=== PATIENT | female | born 1975 | race Hispanic/Latino ===

== ENCOUNTER 2017-05-17 09:13 | Inpatient (IN) | payer OTHER ==
[2017-05-17 09:27] VITALS: BMI 20.7
[2017-05-17 09:39] LABS: HEMATOCRIT 40.5 % (34.0-47.0); MEAN CELL VOLUME 95.1 fl (81.0-99.0); MEAN CORPUSCULAR HEMOGLOBIN 31.5 pg (27.0-31.0); MEAN CORPUSCULAR HGB CONC 33.1 g/dL (33.0-37.0); RED CELL DISTRIBUTION WIDTH 13.1 % (11.5-14.5); WHITE BLOOD COUNT 7.6 K/uL (4.8-10.8)
[2017-05-17] MEDS ORDERED: ceFAZolin IV 1 gm in Dextrose 1 GM/50 ML BAG IVPB ONE (10:06)
[2017-05-17] MEDS ORDERED: ePHEDrine 50 mg/ml Inj ONE (10:47)
[2017-05-17] MEDS ORDERED: Rocuronium 10 mg/ml (5 ml) ONE ×2 (10:47→14:16)
[2017-05-17] MEDS ORDERED: Propofol 10 mg/ml Inj (20 ML) ONE ×2 (10:47→16:30)
[2017-05-17] MEDS ORDERED: Succinylcholine 200 mg/10 ml Inj IV ONE (10:48)
[2017-05-17] MEDS ORDERED: Lidocaine 4% (Laryng-O-Jet) Kit MM ONE (10:48)
[2017-05-17] MEDS ORDERED: Midazolam 2 MG/2 ML VIAL ONE (12:04)
[2017-05-17] MEDS ORDERED: Lactated Ringer's 1,000 ML IV ONE ×3 (12:25→14:50)
[2017-05-17] MEDS ORDERED: Dexamethasone 4 mg/1 ml ONE (12:51)
[2017-05-17] MEDS ORDERED: Desflurane Inhalation Anesthetic Liq (240 ml) ONE ×2 (12:51→15:01)
[2017-05-17] MEDS ORDERED: DiphenhydrAMINE 50 mg/ml Inj ONE (12:51)
[2017-05-17] MEDS: Bupivacaine 0.5% Inj(30mL) ONE ×2 (12:55→13:00)
[2017-05-17] MEDS ORDERED: Sodium Chloride 0.9% 1,000 ML IV ONE ×2 (15:00→17:15)
[2017-05-17] MEDS ORDERED: Neostigmine Methylsulfate 3mg/3ml Syringe IV ONE (16:30)
[2017-05-17] MEDS ORDERED: HYDROmorphone 0.5 mg/0.5 ml ISec ONE (17:22)
[2017-05-17] MEDS: HYDROmorphone 0.5 mg/0.5 ml ISec IVP PRN ×6 (17:22→18:11)
--- NOTE | 2017-05-17 17:57 | RAD ---
HISTORY: POST-OP COMPARISON: No prior. FINDINGS: LUNGS: No active pulmonary disease. PLEURA: Chest tube identified in the right pleural space. No pneumothorax identified. CARDIOVASCULAR: No radiographic findings to suggest acute or significant cardiovascular disease. OSSEOUS STRUCTURES: No significant abnormalities. VISUALIZED UPPER ABDOMEN: Normal. OTHER FINDINGS: Endotracheal tube in satisfactory position, the tip 4.3 cm above the renita IMPRESSION: No active pulmonary disease. Additional information provided above.
[2017-05-17] MEDS ORDERED: HYDROmorphone 1 mg/ml ISec IVP SCH (19:00)
[2017-05-17] MEDS: Lactated Ringer's 1,000 ML IV SCH (19:30)
[2017-05-18] MEDS: ceFAZolin 1 GM in Sodium Chloride 0.9% 100 ML IVPB SCH ×3 (00:29→16:06)
[2017-05-18] MEDS: Lactated Ringer's 1,000 ML IV SCH ×3 (03:58→17:55)
--- NOTE | 2017-05-18 04:16 | CON ---
CRITICAL CARE CONSULTATION DATE: 05/17/2017 LOCATION: The patient is in ICU, bed 422. HISTORY OF PRESENT ILLNESS: The patient is seen and examined at the bedside. Events since admission reviewed. Events in the OR reviewed with anesthesiologist. A 42-year-old female, a nonsmoker with history significant for stage IV endometriosis with pelvic and diaphragm implant. The patient underwent cystoscopy, bilateral ureterolysis, excision of rectal mass, sigmoid mass, complex diaphragmatic mass, complex repair with mesh, and hysteroscopy under general anesthesia through endotracheal tube. *------*. Estimated blood loss about 100 mL. Extubated in the recovery room, on oxygen supplement, Venti mask on 40%. PAST MEDICAL HISTORY: Otherwise negative, no history of diabetes, hypertension, coronary artery disease, CHF. PREVIOUS SURGICAL HISTORY: Negative. MEDICATIONS AT HOME: Include control pill one tablet p.o. daily, naproxen 220 mg p.o. three times a day p.r.n. ALLERGIES: NONE DOCUMENTED. FAMILY HISTORY: Noncontributory. SOCIAL HISTORY: Negative. PHYSICAL EXAMINATION: GENERAL: Middle-aged female, drowsy but arousable, still under the effect of general anesthesia. Saturating over 94%. VITAL SIGNS: Temperature 98.6, heart rate 78, blood pressure 148/76, intake 3100 mL, output about 400, positive balance 2700, weight 125 pounds. HEAD, EYES, EARS, NOSE, AND THROAT: Pupils are reactive. Conjunctivae pink. Sclerae white. NECK: Supple. Trachea is central. CHEST: Bilateral breath sounds. Diminished on the right. Chest tube in place draining, no air leak noted, minimal drainage. ABDOMEN: Bowel sounds present, mildly distended. Dressing intact. No swelling. EXTREMITIES: Without clubbing or cyanosis. No palpable cord. NEUROLOGIC: Drowsy, but arousable. CURRENT MEDICATIONS: Include Tylenol 650 q. 6 p.r.n., Dilaudid 0.5 mg IV q. 5 minutes p.r.n., hydromorphone [employer], Demerol 12.5 mg IV q. 5 minutes p.r.n. for shivering/rigor, Zofran 4 mg IV q. 6, Ancef 1 gram IV q. 8 hours times two more doses, IV fluid. LABORATORY DATA: CBC and BMP are pending. IMPRESSION: A 42-year-old female status post resection of endometrial implant with bilateral ureterolysis, excision of rectal mass, sigmoid mass, complex diaphragmatic mass with chest tube insertion. Operative course was uneventful, extubated, hemodynamically stable. Continue analgesics as needed for pain, IV hydration, monitor hemodynamic stability. Continue DVT prophylaxis. Bubba Kebede MD MTDD
[2017-05-18 05:20] LABS: BASO % 0.2 % (0.0-2.0); HEMATOCRIT 33.9 % (34.0-47.0); LYMPH # 1.2 K/uL (1.0-4.3); LYMPH % 9.5 % (20.0-40.0); MEAN CELL VOLUME 95.4 fl (81.0-99.0); MEAN CORPUSCULAR HEMOGLOBIN 31.8 pg (27.0-31.0); MEAN CORPUSCULAR HGB CONC 33.4 g/dL (33.0-37.0); MEAN PLATELET VOLUME 10.5 fl (7.2-11.7); MONO % 7.5 % (0.0-10.0); NEUT # 10.6 K/uL (1.8-7.0); NEUT % 82.8 % (50.0-75.0); PLATELET COUNT 127 K/uL (130-400); RED CELL DISTRIBUTION WIDTH 13.2 % (11.5-14.5); WHITE BLOOD COUNT 12.7 K/uL (4.8-10.8)
[2017-05-18 05:46] LABS: BLOOD UREA NITROGEN 12 mg/dl (7-17); GFR AFRICAN-AMERICAN > 60; GLUCOSE,RANDOM 93 mg/dL (65-105)
[2017-05-18 05:47] LABS: ALB/GLOB RATIO 1.3 (1.0-2.1); ALKALINE PHOSPHATASE 37 U/L (38-126); ALT/SGPT 55 U/L (9-52); AST/SGOT 62 U/L (14-36); BILIRUBIN,TOTAL 0.5 mg/dl (0.2-1.3); CALCIUM 8.4 mg/dL (8.4-10.2); CARBON DIOXIDE 25 mmol/L (22-30); CHLORIDE 106 mmol/L (98-107); POTASSIUM 4.3 MMOL/L (3.6-5.0); SODIUM 138 mmol/l (132-148); TOTAL PROTEIN 5.6 G/DL (6.3-8.2)
[2017-05-18 06:30] LABS: EOSINOPHIL 1 % (0-7); NEUTROPHIL 78 % (42-75); TOTAL CELLS COUNTED 100
--- NOTE | 2017-05-18 07:40 | CP.PCM.PN ---
Subjective - Date & Time of Evaluation Date of Evaluation: 05/18/17 Time of Evaluation: 07:00 - Subjective Subjective: Patient seen and examined this AM. Reports moderate pain along chest tube site insertion. CT output: 180cc/12hr, serosanguinous. Urine output: 450cc/24hr. No acute events over night. Objective - Vital Signs/Intake and Output Vital Signs (last 24 hours): Temp Pulse Resp BP Pulse Ox 98.4 F 52 L 12 115/66 93 L 05/18/17 04:00 05/18/17 06:00 05/18/17 06:00 05/18/17 06:00 05/18/17 06:00 Intake and Output: 05/18/17 05/18/17 06:59 18:59 Intake Total 1609 Output Total 790 Balance 819 - Medications Medications: Current Medications Acetaminophen (Tylenol 325mg Tab) 650 mg PO Q6 PRN PRN Reason: Fever >100.4 F Lactated Ringer's (Lactated Ringer's) 1,000 mls @ 125 mls/hr IV .Q8H [facility] Last Admin: 05/18/17 03:58 Dose: 125 mls/hr Cefazolin Sodium 1 gm/ Sodium (Chloride) 100 mls @ 100 mls/hr IVPB Q8 [facility]SEMARY PRN Reason: Protocol Last Admin: 05/18/17 00:29 Dose: 100 mls/hr Influenza Virus Vaccine (Afluria (Pf)(18yr & Older)) 0.5 ml IM .ONCE ONE Stop: 05/19/17 09:01 Ketorolac Tromethamine (Toradol) 30 mg IVP Q6 ROSEMARY Last Admin: 05/18/17 03:48 Dose: 30 mg Meperidine HCl (Demerol) 12.5 mg IVP Q5M PRN PRN Reason: Shivering/Rigor Morphine Sulfate (Morphine Night Time Nanny 1 Mg/Ml) 0 mg IV PRN PRN; Protocol PRN Reason: Pain, moderate (4-7) Last Admin: 05/18/17 03:31 Dose: 30 mg Ondansetron HCl (Zofran Inj) 4 mg IVP Q6 ROSEMARY Last Admin: 05/18/17 03:48 Dose: 4 mg - Labs Labs: 05/18/17 04:25 05/18/17 04:25 - Constitutional Appears: No Acute Distress - Head Exam Head Exam: NORMOCEPHALIC - Eye Exam Eye Exam: Normal appearance Pupil Exam: NORMAL ACCOMODATION - ENT Exam ENT Exam: Mucous Membranes Moist - Respiratory Exam Respiratory Exam: NORMAL BREATHING PATTERN - Cardiovascular Exam Cardiovascular Exam: +S1, +S2. absent: Tachycardia - GI/Abdominal Exam GI & Abdominal Exam: Soft, Tenderness. absent: Firm - Neurological Exam Neurological Exam: Alert, Awake, Oriented x3 - Psychiatric Exam Psychiatric exam: Normal Mood - Skin Skin Exam: Dry, Intact, Warm Assessment and Plan - Assessment and Plan (Free Text) Assessment: 42F s/p excision of endometriomas, rectosigomoid mass, diaphragmatic mass w/ complex repair w/ mesh, cystoscopy, and b/l urethral lysis -Advance diet as tolerated -Chest tube to water seal -D/C Arora -Repeat CXR in four hours -Encourage patient OOB to chair -Encourage incentive spirometer use -Monitor chest tube output -D/w Dr. Nishant Noriega PGY-2
--- NOTE | 2017-05-18 09:07 | PCM.OP ---
Operative Report - Operative Report Date of Surgery/Procedure: 05/17/17 Time of Surgery/Procedure: 11:00 Surgeon: Dr. Juan Pablo Dillard Inspecting Supervisor: Dr. Stephon Shetty Anesthesia/Sedation: general/Dr. Fragoso Pre-Operative Diagnosis: abdominal pain and endometriosis Post-Operative Diagnosis: abdominal pain and endomatriosis involving the sigmoid colon, rectum and extensive involvement of the right diaphragm Indication for Surgery: abdominal pain from endometriosis with extensive involvement of the sigmoid colon, rectum and multiple lesions on the right diaphragm Operative Findings: Extensive endometriosis with involvement of the sigmoid colon, rectum and right diaphragm Procedure/Operation Description: 1-Multiple excisions of sigmoid colon and rectum endometriosis. 2-Daiphragm resection (times 3) with complex repair with laparoscopic strattice mesh (6x8 cm). 3-Right tube thoracostomy. Brief History : This 42 year old woman had been brought to the operating room by Dr. Shetty where the robotic procedure had already been initiated. Intraoperative consultation from general surgery was requested due to the lesions invovling the sigmoid colon, rectum and extrnsive involvement of the right diaphragm. Decription of the procedure: The patient had already been brought to the operating room by Dr. Shetty and he had already in itiated the robotic procedure (separate dictation Dr. Shetty). With the robot positions for the pelvis the areas in question involving the sigmoid colon and rectum were examined. After taking control of the robotic console the fist lesion in then rectum was addressed. With blunt and sharp dissection with the aid of electrocautery the first (rectal lesion)m was incised circumferentially. It was lifted from the rectal wall and sent to apthology as a separate specimen. The other lesion (sigmoid colon), which was deeper was excised in a similar manner and sent to pathology as a separate specimen. The area of dissection was examined and the wall was oversewn with multiple 3-0 vicryl sutures. The operation was then turned over to Dr. Shetty (separate dictation Dr. Goodman). Once Dr. Shetty completed his portion of the pelvic operation the robot was repositioned for the upper abdomen in order to address the extensive involvement of endometriosis on the right diaphragm. Aftert taking control of the robotic console the areas in question were examined. Four groups of lesions could be identified: 1-on the anterior abdominal wall in the midaxillary line, 2 -on the right diaphragm at the junction of the pericardium and right hepatic vein, 3-on the right diaphragm to the midclavicular line near segment 8 of the right hemiliver and 4-another group of lesions just above segment 7 of the right hemiliver. The first lesion (1) was dissected with blunt and shapr dissection with the aid of electrocautery and was circumfernetially incised and removed with particular attetnion to hemostasis. The second lesion (2) near the pericardium was incised and excised in a similar manner. The third grpup of lesions (3) was also incised using the same technique and the thoracic cavity was enetered. The lesions were circumferentially excised en-bloc and removed with particular attention to hemostasis. The last lesion group of lesions (4) were also excised in a similar manner and the thoracic cavity was opened as well. All four groups of specimens were marked and separate;ly sent to pathology separately. With the thorax open a 28 F chest tube was introduced in the thorax after making a small incison into the right chest cavity. The chest tube was palced with ease and placed to underwater suction. The diaphragm was then closed first primarily with 2-0 V-lock sutures in both areas of defect. As the pleurovac persistently demonstrated a leak a 6x8 cm strattice mesh was placed into the abdominal cavity and sutures to the defect with multiple V-loc sutures. Once completed the complex erepair seemed adequate. Pneomoperitoneum was removed and the patien was placed in a normal supine position. There was no air leak with the pleurocvac. Hemostasis was deemed adeqaute. All trocars were removed and the incisons were closed with 2-0 PDS for the fascia and 4-0 monocryl for the skin. A portable CXR was obtained prior to extubation and the lungs were expanded addeqautely without evidence of pneumothorax. The patient was extubated and brought to the recovery room in stable condition. Estimated Blood Loss: 100 cc Complications: none Discharge & Condition: stable
--- NOTE | 2017-05-18 10:07 | RAD ---
HISTORY: s/p chest tube insertion COMPARISON: 05/17/2017 FINDINGS: There has been interval extubation. There is interval placement of a right chest tube. LUNGS: The lungs are well inflated and clear. PLEURA: No significant pleural effusion identified, no pneumothorax apparent. CARDIOVASCULAR: Normal. OSSEOUS STRUCTURES: No significant abnormalities. VISUALIZED UPPER ABDOMEN: Normal. OTHER FINDINGS: None. IMPRESSION: Interval placement of right chest tube. No definite evidence of pneumothorax.
--- NOTE | 2017-05-18 14:06 | RAD ---
HISTORY: r/o pneumothorax, s/p CT to H2O seal COMPARISON: May 17, 2017. Time of the most recent examination: 07:10 FINDINGS: LUNGS: No active pulmonary disease. PLEURA: No pneumothorax identified. Chest tube in stable position. CARDIOVASCULAR: Normal. OSSEOUS STRUCTURES: No significant abnormalities. VISUALIZED UPPER ABDOMEN: Normal. OTHER FINDINGS: None. IMPRESSION: No pneumothorax identified. Stable position of chest tube in the right pleural space.
--- NOTE | 2017-05-18 15:26 | RAD ---
HISTORY: s/p chest tube removal COMPARISON: Plain radiographs performed earlier the same day. FINDINGS: LUNGS: The lungs are clear. The right chest tube has been removed. PLEURA: No significant pleural effusion identified, no pneumothorax apparent. CARDIOVASCULAR: Normal. OSSEOUS STRUCTURES: No significant abnormalities. VISUALIZED UPPER ABDOMEN: Normal. OTHER FINDINGS: None. IMPRESSION: Status post removal of the right chest tube, no acute findings.
--- NOTE | 2017-05-18 15:45 | PN ---
CRITICAL CARE PROGRESS NOTE DATE OF SERVICE: 05/18/2017 LOCATION: The patient in ICU, bed #422. TIME SPENT: 35 minutes. SUBJECTIVE: The patient is seen and examined at the bedside. A 42-year-old female with extensive endometriosis, underwent da Lonnie endometriosis, cystoscopy, bilateral ureterolysis, excision of a rectal mass, sigmoid mass, complex diaphragmatic mass, complex repair with mesh, hysteroscopy, and a chest tube insertion, postop day 1, operative course uneventful, overnight remained afebrile, normotensive, telemetry sinus rhythm, chest tube to low wall suction, this morning, out of bed to chair, wall suction discontinued, alert, awake, complaining of [id number] pain at the site of Mohs surgery. No nausea, vomiting. OBJECTIVE: VITAL SIGNS: Temperature 98.8, heart rate 56 to 64, regular, blood pressure 93/56 to 110/67, respiratory rate 11 to 15, thoracoabdominal, saturation 97% on oxygen 2 L nasal cannula, end-tidal CO2 of 41, intake 5109, output 1190, positive balance 3919, weight 125 pounds. HEENT: Pupils are reactive. Conjunctivae pink. Sclerae white. NECK: Supple. Trachea central. CHEST: Bilateral breath sounds, diminished in intensity. No subcutaneous emphysema. No air leak. HEART: Rhythm regular. S1 and S2 normal. ABDOMEN: Bowel sounds present, mildly distended. EXTREMITIES: SCD in place. Dorsalis pedis palpable. NEUROLOGIC: Nonfocal. LABORATORY DATA: WBC 12.7, hemoglobin 11.3, hematocrit 33.9, MCV 95.4, platelet count 127, neutrophils 82.8, lymphocytes 9.5, monocytes 7.5. SMA-7: Sodium 138, potassium 4.3, chloride 106, CO2 25, blood urea nitrogen 12, creatinine 0.8, random glucose 93, calcium 8.4, total bilirubin 0.5, AST 62, ALT 55, alkaline phosphatase 37, total protein 5.6, albumin 3.2. Chest x-ray: No pneumothorax. No pleural effusion. Chest tube in place. CURRENT MEDICATIONS: Tylenol 650 q. 6 p.r.n., cefazolin 100 mg IV q. 8 x3 completed, Pepcid 20 mg p.o. daily, Toradol 30 mg IV q. 6 p.r.n., Ringer's lactate at 125 mL per hour, Demerol 12.5 mg, IV push q. 5 minutes p.r.n., Zofran 4 mg IV q. 6 p.r.n. IMPRESSION AND PLAN: Stable postoperative, status post da Lonnie endometriosis procedure. Continue analgesics as needed. Deep venous thrombosis, gastrointestinal prophylaxis. Out of bed to chair. Incentive spirometry to reduce postoperative atelectasis. Appreciate followup by Surgery consult. Bubba Kebede MD
--- NOTE | 2017-05-18 18:58 | OP ---
PROCEDURE DATE: 05/17/2017 SURGEON: Stephon Shetty MD EMPLOYMENT CASE MANAGER: Juan Pablo Dillard MD TYPE OF ANSESTHESIA: General. ANESTHESIA ADMINISTERED BY: Tere Fragoso MD PREOPERATIVE DIAGNOSES: Pelvic pain, bladder pain, abdominal pain, known history of endometriosis of the pelvis. POSTOPERATIVE DIAGNOSES: Pelvic pain, bladder pain, abdominal pain, known history of endometriosis of the pelvis plus stage IV endometriosis involving the pelvis, the intestine, and the diaphragm. PROCEDURE: Cystoscopy with bilateral ureteral catheterization and injection of dye, diagnostic hysteroscopy, robotic Da Lonnie operative laparoscopy with excision of endometriosis, bilateral ureterolysis, and ovariolysis. COMPLICATION: None. SPECIMEN: Multiple specimen sent to Pathology. Additionally a SEPARATE DICTATION WILL be performed by Dr. Juan Pablo Dillard MD from General Surgery for the bowel and the diaphragmatic surgical part as well as placement ofchest tube. INDICATION FOR THE PROCEDURE: The patient is a 42-year-old with a very long history of severe pelvic pain, bladder pain, and abdominal pain. She had known endometriosis for which she had a surgery in 2013. She was seen in my office and she had a full evaluation including an MRI that revealed the presence of extensive pelvis endometriosis with adhesions as well as evidence of bowel involvement. The MRI was, otherwise, clear with the exception of a small renal scarring which was not deemed to be associated with endometriosis or any malignancy. Prior to the surgery, the patient was counseled with regards to the risks and benefits of the surgery. The patient understood that the surgery was extensive. The patient also was known to have endometriosis of the diaphragm as she was told this by her prior surgeon. Therefore, she was counseled with regards to the risks of the surgery, the benefits and signed the consent and was taken to the OR. DESCRIPTION OF PROCEDURE: After adequate anesthesia was obtained, the patient was placed in the dorsal lithotomy position. She was prepped and draped. The surgeons were gowned and gloved. A time-out was taken according to the hospital regulations. At this point, a cystoscope was inserted into the bladder under direct visualization and a pancystoscopy was performed. Both the ureters appeared to be in the anatomically correct position. At this point, a 5-Malagasy open-ended catheter was injected into the left ureter and it was advanced all the way to the distal ureter. 0.5 mL of IC-Green was injected into the left ureter. The catheter was then removed. Attention then was on the right ureter where the catheter was inserted into the right ureter to the distal ureter and 5 mL of IC-Green were injected into the left ureter. At this point, the catheter was removed from the right ureter. The rest of the pancystoscopy was performed and the bladder appeared to be free of tumors or any other bleeding areas. A 16-Malagasy Arora was then placed in the bladder. Attention was in the vaginal area where then a speculum was placed in the vagina, the anterior lip of the cervix was grasped, and a hysteroscopy was performed revealing no evidence of submucous myomas or adenomyosis. This was relevant as the patient's MRI showed the presence of a fibroid, but this did not appear to affect the cavity. At this point, attention was then on the abdomen where after re-gowning and re-gloving, an incision was made above the umbilicus and was carried all the way down through the fascia, the fascia was incised in an open laparoscopy technique, and the peritoneum was entered. The blunt trocar was then inserted. Under direct visualization, 4 additional trocars were inserted, left upper quadrant, the left mid quadrant, and right upper quadrant. At this point, a complete inspection of the abdomen and the pelvis was performed. There appeared to be evidence of deep endometriosis lesions on the diaphragm on the right side of the body on the right diaphragm. The pelvis appeared to be affected by extensive endometriosis, it was a stage IV without evidence of endometriosis on the top of the iliac vessels on the left hand side incorporating the left fallopian tube partially. The rectovaginal septum was completely obliterated with the uterus being in the retroversal flexed position. There appeared to be evidence of deep implants of deep infiltrating endometriosis, both in the right pelvic side caballero. At this point, the left ovary was also attached deeply to the left pelvic side wall with thick adhesions. There was also evidence of implants of endometriosis on the sigmoid. Dr. Juan Pablo Dillard from General Surgery was called in to assist in the procedure and the procedure started. The first part, the procedure involved excision of endometriosis on the left abdominal wall right overlying the iliac vessels. The peritoneum was grasped and elevated and the retroperitoneal space was entered. A progressed dissection was performed above the iliac artery and vein and a full sample of deep infiltrating endometriosis was excised and sent to Pathology in a step by step fashion avoiding to damage the vessels or the adjacent to which was incorporated as part of this. Both fallopian tubes appeared to be in acceptable condition. At this point, attention was on the left-hand side of the pelvis where after identifying the ureter, a full left ureterolysis was performed by opening the peritoneum at the pelvic brim, entering the retroperitoneal space and progressively performing a full dissection all the way from the pelvic brim, all the way down to the uterine vessels. After a full ureterolysis was performed, at this point, the mass was identified, appeared to be a large nodular endometriosis on the left hand side. An incision was made on the posterior aspect of the uterus and this incision was progressively dissected all the way down in a step by step fashion progressively dissecting all the way down to the rectovaginal septum. This was done with greater ease, thanks to the use of a Valtchev. Throughout this process, the presence of the ureter was also kept in full control utilizing fluorescence technology and a Firefly. At this point, a progressive dissection was performed and a nodule was peeled off completely from the ovarian fossa in the left pelvic side wall in a step by step fashion preserving the ureter as well as the hypogastric flexes of nerves. At this point, a dissection proceeded on the rectal sides of the lesion and a progressive excision was performed, excising a large mass which was removed en bloc. It was a 3 x 5 cm mass. Similarly, at this point, on the right hand side of the pelvis, a deep area of endometriosis was appeared to be involving the right pelvic side wall, the right ovarian fossa in the posterior aspect of the cervix. The ureter again on the right hand side was identified and the retroperitoneal space was grasped above the ureter and the ureter was dissected out with a full ureterolysis and dissecting out of the way. At this point, a large mass which was fibrotic endometriosis, was also excised in a step by step fashion. A much amount of a chocolate-type fluid came out as the mass was progressively excised and the mass was deeply and firmly attached to the uterine vessels and yet need to be literally peeled off the vessels, also in a step by step fashion without injuring the uterine vessels. Once this full excision was performed, additional areas of endometriosis were excised from the anterior rectum, again with extreme care not to enter the muscularis of the rectum. At this point, the pelvis was irrigated. There appeared no lesions and both ovaries were inspected, appearing to be free of endometriosis or endometriomas. At this point, the surgery was turned over to Dr. Juan Pablo Dillard, who, assisted by me, proceeded with excision of the rectal lesions and the endometriosis on the diaphragm. He will dictate this part of the surgery separately. This was an extremely complex operation that was both very lengthy in time as well as complicated in its execution. Stephon Shetty MD MTDRoslyn
[2017-05-18] MEDS ORDERED: ceFAZolin 1 GM in Sodium Chloride 0.9% 100 ML IVPB SCH (20:00)
[2017-05-19] MEDS ORDERED: Morphine 4 MG/ML VIAL IVP PRN ×2 (00:32→00:33)
[2017-05-19] MEDS: ceFAZolin 1 GM in Sodium Chloride 0.9% 100 ML IVPB SCH ×3 (01:06→16:41)
[2017-05-19 05:22] LABS: BLOOD UREA NITROGEN 8 mg/dl (7-17); CALCIUM 8.3 mg/dL (8.4-10.2); CARBON DIOXIDE 29 mmol/L (22-30); CHLORIDE 107 mmol/L (98-107); GFR AFRICAN-AMERICAN > 60; GLUCOSE,RANDOM 95 mg/dL (65-105); POTASSIUM 3.8 MMOL/L (3.6-5.0); SODIUM 140 mmol/l (132-148)
[2017-05-19 05:32] LABS: HEMATOCRIT 32.2 % (34.0-47.0); MEAN CELL VOLUME 95.7 fl (81.0-99.0); MEAN CORPUSCULAR HEMOGLOBIN 31.6 pg (27.0-31.0); RED CELL DISTRIBUTION WIDTH 13.2 % (11.5-14.5); WHITE BLOOD COUNT 7.9 K/uL (4.8-10.8)
[2017-05-19] MEDS: Lactated Ringer's 1,000 ML IV SCH (06:00)
[2017-05-19] MEDS ORDERED: Oxycodone/Acetaminophen 5/325 mg Tab PO PRN ×2 (07:20)
--- NOTE | 2017-05-19 07:27 | CP.PCM.PN ---
Subjective - Date & Time of Evaluation Date of Evaluation: 05/19/17 Time of Evaluation: 07:00 - Subjective Subjective: Patient seen and examined this morning. No acute events over night. Tolerating liquid diet. Has not passed flatus. Patient is ambulating. Denies chest pain/SOB , n/v. Objective - Vital Signs/Intake and Output Vital Signs (last 24 hours): Temp Pulse Resp BP Pulse Ox 98.1 F 63 14 107/59 L 96 05/19/17 04:00 05/19/17 06:00 05/19/17 06:00 05/19/17 06:00 05/19/17 06:00 Intake and Output: 05/19/17 05/19/17 06:59 18:59 Intake Total 775 Balance 775 - Medications Medications: Current Medications Famotidine (Pepcid) 20 mg PO DAILY [facility] Last Admin: 05/18/17 08:58 Dose: 20 mg Cefazolin Sodium 1 gm/ Sodium (Chloride) 100 mls @ 100 mls/hr IVPB Q8 [facility] PRN Reason: Protocol Last Admin: 05/19/17 01:06 Dose: 100 mls/hr Potassium Chloride/Dextrose/Sod Cl (Potassium Chl 20 Meq In D5-1/2ns) 1,000 mls @ 100 mls/hr IV .Q10H [facility] Stop: 05/20/17 06:33 Influenza Virus Vaccine (Afluria (Pf)(18yr & Older)) 0.5 ml IM .ONCE ONE Stop: 05/19/17 09:01 Ketorolac Tromethamine (Toradol) 30 mg IVP Q6 [facility] Last Admin: 05/19/17 05:15 Dose: 30 mg Meperidine HCl (Demerol) 12.5 mg IVP Q5M PRN PRN Reason: Shivering/Rigor Ondansetron HCl (Zofran Inj) 4 mg IVP Q6 [facility] Last Admin: 05/19/17 04:53 Dose: 4 mg Oxycodone/Acetaminophen (Percocet 5/325 Mg Tab) 1 tab PO Q4 PRN PRN Reason: Pain, moderate (4-7) Stop: 05/22/17 07:21 Oxycodone/Acetaminophen (Percocet 5/325 Mg Tab) 2 tab PO Q4 PRN PRN Reason: Pain, severe (8-10) Stop: 05/22/17 07:21 - Labs Labs: 05/19/17 04:25 05/19/17 04:25 - Constitutional Appears: No Acute Distress - Head Exam Head Exam: NORMOCEPHALIC - Eye Exam Eye Exam: Normal appearance - ENT Exam ENT Exam: Mucous Membranes Moist - Respiratory Exam Respiratory Exam: NORMAL BREATHING PATTERN - Cardiovascular Exam Cardiovascular Exam: +S1, +S2. absent: Tachycardia - GI/Abdominal Exam GI & Abdominal Exam: Distended, Soft, Tenderness. absent: Firm, Guarding, Rigid Additional comments: moderately tender to palpation mild distension - Neurological Exam Neurological Exam: Alert, Awake, Oriented x3 - Psychiatric Exam Psychiatric exam: Normal Mood - Skin Skin Exam: Dry, Intact, Warm Assessment and Plan - Assessment and Plan (Free Text) Assessment: 42F s/p excision of endometriomas, rectosigomoid mass, diaphragmatic mass w/ complex repair w/ mesh, cystoscopy, and b/l urethral lysis -Full liquid diet -Encourage patient OOB to chair, ambulation -Encourage incentive spirometer use -Monitor bowel function -Dulcolax daily -Analgesics prn -D/w Dr. Nishant Noriega PGY-2
[2017-05-19] MEDS: Bisacodyl 5mg EC Tab PO SCH (08:35)
[2017-05-19] MEDS ORDERED: Influenza Vaccine 18yr & older 0.5 ML/45 MCG SYR IM ONE (09:00)
--- NOTE | 2017-05-19 10:33 | RAD ---
HISTORY: f/u CT removal, r/o pneumothorax COMPARISON: 05/18/2017 3:10 p.m.. FINDINGS: LUNGS: The lungs are well inflated. There is right basilar atelectasis. A curvilinear lucency is also identified at the right lung base. PLEURA: No significant pleural effusion identified, no pneumothorax apparent. CARDIOVASCULAR: Normal. OSSEOUS STRUCTURES: No significant abnormalities. VISUALIZED UPPER ABDOMEN: Normal. OTHER FINDINGS: None. IMPRESSION: Right basilar atelectasis. Also seen is a curvilinear lucency at the right lung base, small basilar pneumothorax cannot be excluded in this patient. Follow-up PA and lateral radiographs would be helpful for further evaluation.
[2017-05-19] MEDS: Potassium Ch 20mEq in D5-1/2NS 1,000 ML IV SCH (15:00)
[2017-05-19 23:33] VITALS: RESP 20
[2017-05-20] MEDS: ceFAZolin 1 GM in Sodium Chloride 0.9% 100 ML IVPB SCH ×3 (00:26→16:07)
[2017-05-20] MEDS: Potassium Ch 20mEq in D5-1/2NS 1,000 ML IV SCH (00:30)
[2017-05-20 05:50] LABS: BASO % 0.5 % (0.0-2.0); EOS # 0.1 K/uL (0.0-0.7); EOS % 2.5 % (0.0-4.0); LYMPH # 1.5 K/uL (1.0-4.3); LYMPH % 27.4 % (20.0-40.0); MEAN CELL VOLUME 95.4 fl (81.0-99.0); MEAN CORPUSCULAR HEMOGLOBIN 31.2 pg (27.0-31.0); MEAN CORPUSCULAR HGB CONC 32.7 g/dL (33.0-37.0); MEAN PLATELET VOLUME 9.7 fl (7.2-11.7); MONO # 0.6 K/uL (0.0-0.8); MONO % 10.7 % (0.0-10.0); NEUT # 3.2 K/uL (1.8-7.0); NEUT % 58.9 % (50.0-75.0); RED CELL DISTRIBUTION WIDTH 13.1 % (11.5-14.5); WHITE BLOOD COUNT 5.5 K/uL (4.8-10.8)
[2017-05-20 06:05] LABS: BLOOD UREA NITROGEN 5 mg/dl (7-17); CALCIUM 8.7 mg/dL (8.4-10.2); CARBON DIOXIDE 29 mmol/L (22-30); CHLORIDE 108 mmol/L (98-107); GFR AFRICAN-AMERICAN > 60; GLUCOSE,RANDOM 102 mg/dL (65-105); POTASSIUM 3.9 MMOL/L (3.6-5.0); SODIUM 142 mmol/l (132-148)
[2017-05-20] MEDS: Bisacodyl 5mg EC Tab PO SCH (09:22)
[2017-05-20] MEDS ORDERED: Oxycodone/Acetaminophen 5/325 mg Tab PO PRN (10:58)
--- NOTE | 2017-05-20 14:30 | CP.PCM.PN ---
Subjective - Date & Time of Evaluation Date of Evaluation: 05/20/17 Time of Evaluation: 10:20 - Subjective Subjective: Patient seen and examined this morning. No complaints. No acute events over night. Tolerating regular diet. +Bowel movement. Reports feeling much better. Objective - Vital Signs/Intake and Output Vital Signs (last 24 hours): Temp Pulse Resp BP Pulse Ox 97 F L 64 20 145/80 100 05/20/17 13:00 05/20/17 13:00 05/20/17 13:00 05/20/17 13:00 05/20/17 13:00 Intake and Output: 05/20/17 05/20/17 06:59 18:59 Intake Total 1540 Balance 1540 - Medications Medications: Current Medications Bisacodyl (Dulcolax) 5 mg PO DAILY [facility] Last Admin: 05/20/17 09:22 Dose: 5 mg Famotidine (Pepcid) 20 mg PO DAILY [facility] Last Admin: 05/20/17 09:22 Dose: 20 mg Cefazolin Sodium 1 gm/ Sodium (Chloride) 100 mls @ 100 mls/hr IVPB Q8 [facility] PRN Reason: Protocol Last Admin: 05/20/17 08:32 Dose: 100 mls/hr Ketorolac Tromethamine (Toradol) 10 mg PO Q6 PRN PRN Reason: Pain, moderate (4-7) Last Admin: 05/20/17 12:21 Dose: 10 mg Ondansetron HCl (Zofran Inj) 4 mg IVP Q6 [facility] Last Admin: 05/20/17 09:23 Dose: Not Given Oxycodone/Acetaminophen (Percocet 5/325 Mg Tab) 1 tab PO Q4 PRN PRN Reason: Pain, severe (8-10) Stop: 05/22/17 07:21 - Labs Labs: 05/20/17 05:30 05/20/17 05:30 - Constitutional Appears: No Acute Distress - Head Exam Head Exam: NORMOCEPHALIC - Eye Exam Eye Exam: Normal appearance - ENT Exam ENT Exam: Mucous Membranes Moist - Respiratory Exam Respiratory Exam: NORMAL BREATHING PATTERN - Cardiovascular Exam Cardiovascular Exam: +S1, +S2 - GI/Abdominal Exam GI & Abdominal Exam: Soft - Neurological Exam Neurological Exam: Alert, Awake, Oriented x3 - Psychiatric Exam Psychiatric exam: Normal Mood - Skin Skin Exam: Dry, Intact, Warm Assessment and Plan - Assessment and Plan (Free Text) Assessment: 42F s/p excision of endometriomas, rectosigomoid mass, diaphragmatic mass w/ complex repair w/ mesh, cystoscopy, and b/l urethral lysis POD#3 -Regular diet -Plan for D/C -Encourage patient OOB to chair, ambulation -Encourage incentive spirometer use -Monitor bowel function -Dulcolax daily -Analgesics prn -Further recs per Dr. Sena Noriega PGY2
[2017-05-20 16:21] VITALS: BP 130/87; PULSE 70; TEMP 98.9; O2SAT 99
--- NOTE | 2017-05-27 14:13 | DS ---
INDICATION FOR ADMISSION: The patient was admitted preoperatively with a diagnosis of severe pelvic pain and pelvic endometriosis. The patient underwent surgery on 05/17/2017. It was an extensive procedure that revealed a very advanced disease including masses in the pelvis, anterior bladder as well as the diaphragm. Dr. Juan Pablo Dillard from General Surgery was called in to assist in a very complex operation that was very prolonged and extensive. HOSPITAL COURSE: The patient during the surgery required an excision of a mass in the right hemidiaphragm, which was excised and also required placement of a chest tube. After the surgery, which went uneventfully, the patient was transferred to the recovery room and then to the Intensive Care Unit due to the length and complexity of the operation. She had an uneventful recovery in the Intensive Care Unit and after on postop day 2, she was transferred to the regular postsurgical floor. Her diet was advanced. She was afebrile. She tolerated a regular diet and on postoperative day 3, the patient was doing very well. The chest tube was removed showing no evidence of pneumoperitoneum. The patient was free of pain and had a bowel movement and was discharged home with instructions to follow up with Dr. Shetty in [address] Dillard in 2 weeks. The patient was sent home with p.o. Percocet and instructed to alternate that with nonsteroidals. Stephon Shetty MD
== END 2017-05-20 18:07 | disposition home or self-care (01) | DRG 331 ==
LOC: H.OPSURG 09:13 → H.ICU/CCU 18:15 → H.PEDS 05-19 16:10
PROVIDERS: ADMIT Obstetrics & Gynecology Reproductive Endocrinology; ATTEND Obstetrics & Gynecology Reproductive Endocrinology
PROC: 0BBT4ZZ Excision of Diaphragm, Percutaneous Endoscopic Approach (ICD-10-PCS; 2017-05-17)
PROC: 0TN74ZZ Release Left Ureter, Percutaneous Endoscopic Approach (ICD-10-PCS; 2017-05-17)
PROC: 0TN64ZZ Release Right Ureter, Percutaneous Endoscopic Approach (ICD-10-PCS; 2017-05-17)
PROC: 0UN24ZZ Release Bilateral Ovaries, Percutaneous Endoscopic Approach (ICD-10-PCS; 2017-05-17)
PROC: 8E0W4CZ Robotic Assisted Procedure of Trunk Region, Percutaneous Endoscopic Approach (ICD-10-PCS; 2017-05-17)
PROC: 0W9930Z Drainage of Right Pleural Cavity with Drainage Device, Percutaneous Approach (ICD-10-PCS; 2017-05-17)
PROC: 0DBN4ZZ Excision of Sigmoid Colon, Percutaneous Endoscopic Approach (ICD-10-PCS; principal; 2017-05-17 11:00)
PROC: 0DBP4ZZ Excision of Rectum, Percutaneous Endoscopic Approach (ICD-10-PCS; 2017-05-17 11:00)
PROC: 3E0234Z Introduction of Serum, Toxoid and Vaccine into Muscle, Percutaneous Approach (ICD-10-PCS; 2017-05-19)
DX: N80.5 Endometriosis of intestine (principal); J98.6 Disorders of diaphragm; K63.9 Disease of intestine, unspecified; N80.3 Endometriosis of pelvic peritoneum; N80.8 Other endometriosis; Z23 Encounter for immunization